=== PATIENT | female | born 2000 | race Caucasian/White ===

== ENCOUNTER 2025-04-20 00:02 | Emergency (ER) | payer MEDICAID ==
[~2025-04-20] VITALS: Ht 170.2 cm; Wt 88.7 kg
[2025-04-20 00:09] VITALS: O2SAT 99
[2025-04-20] MEDS ORDERED: ACETAMINOPHEN 325MG TABLET PO ONE (02:15)
[2025-04-20] MEDS ORDERED: IBUP-2029 MT (02:22)
[2025-04-20] MEDS: IBUPROFEN 600MG TABLET PO ONE (02:24)
[2025-04-20 02:28] VITALS: BP 107/65; PULSE 66; RESP 16; TEMP 36.6; O2SAT 100
== END 2025-04-20 02:40 | disposition home or self-care (01) ==
LOC: ER 00:02
DX: G44.209 Tension-type headache, unspecified, not intractable (principal)
CPT/HCPCS: 81025; 99282